=== PATIENT | male | born 1950 | race African-American/Black ===

== ENCOUNTER 2022-08-01 08:47 | Emergency (ER) | payer OTHER, BC ==
[~2022-08-01] VITALS: Ht 185.4 cm; Wt 99.0 kg
[2022-08-01] VITALS (7 sets, daily range): BP systolic 129–158; BP diastolic 73–108
[~2022-08-01 08:47] MED LIST: ADALAT CC30 MG PO; BENTYL20 MG OR; NO MEDS; ZITHROMAX250 MG PO
== END 2022-08-01 12:11 | disposition home or self-care (01) | DRG 605 ==
LOC: ED 08:47
DX: S00.93XA Contusion of unspecified part of head, initial encounter (principal); M54.2 Cervicalgia; V43.52XA Car driver injured in collision with other type car in traffic accident, initial encounter; E11.9 Type 2 diabetes mellitus without complications; I10 Essential (primary) hypertension; Z79.84 Long term (current) use of oral hypoglycemic drugs